=== PATIENT | female | born 1990 | race Caucasian/White ===

== ENCOUNTER 2017-07-28 23:32 | Emergency (ER) | payer OTHER ==
[2017-07-28 23:41] VITALS: BP 118/81; PULSE 78; TEMP 97.6; BMI 27.4
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
== END 2017-07-29 00:49 | disposition home or self-care (01) ==
LOC: JER 23:32
DX: S13.4XXA Sprain of ligaments of cervical spine, initial encounter (principal); V49.49XA Driver injured in collision with other motor vehicles in traffic accident, initial encounter; Y92.488 Other paved roadways as the place of occurrence of the external cause; Y93.89 Activity, other specified; Y99.8 Other external cause status
CPT/HCPCS: 84703; 99282-25

== ENCOUNTER 2017-12-29 18:01 | Emergency (ER) | payer SELFPAY ==
[2017-12-29 18:16] VITALS: BP 133/78; PULSE 105; TEMP 98.8; BMI 26.6
--- NOTE | 2017-12-29 18:16 | PDOC ---
Rapid Medical Evaluation Time Seen by Provider: 12/29/17 18:13 Medical Evaluation: Allergies Allergy/AdvReac Type Severity Reaction Status Date / Time No Known Allergies Allergy Verified 12/29/17 18:13 12/29/17 18:14 I have performed a brief in-person evaluation of this patient. The patient presents with a chief complaint of: creamy white, malodorous discharge x 2 days. Also c/o itching and ? dysuria. No abd pain, n/v/f/c. Had unprotected sex with new male 2 days ago per pt. H/o STDs. No pmhx Pertinent physical exam findings:pelvic deferred to ED provider I have ordered the following:upreg/ua/ucx/std, pt req HIV test The patient will proceed to the ED for further evaluation. 12/29/17 18:17 12/29/17 18:17 Discharge Disposition - Diagnosis Vaginal discharge - Referrals Referrals: Hao Nguyen [Primary Care Provider] - - Patient Instructions - Post Discharge Activity
[2017-12-29] MEDS ORDERED: AZITHROMYCIN 250 MG TABLET ONE (18:58)
[2017-12-29] MEDS ORDERED: AZITHROMYCIN 500 MG TABLET PO SCH (19:00)
--- NOTE | 2017-12-29 19:01 | PDOC ---
History of Present Illness - General Chief Complaint: Vaginal Sxs Stated Complaint: VAG SYMPTOMS Time Seen by Provider: 12/29/17 18:13 History Source: Patient Exam Limitations: No Limitations - History of Present Illness Travel History: No Initial Comments: 12/29/17 19:21 27 yr female with unprotected intercourse 2 days ago now has vaginal discomfort with white discharge. pt here for std testing. no pmhx. Past History - Past Medical History Allergies/Adverse Reactions: Allergies Allergy/AdvReac Type Severity Reaction Status Date / Time No Known Allergies Allergy Verified 12/29/17 18:13 Home Medications: Ambulatory Orders NK [No Known Home Medication] 12/29/17 Anemia: No Asthma: No Cancer: No Cardiac Disorders: No CVA: No COPD: No CHF: No Dementia: No Diabetes: No GI Disorders: No Disorders: No HTN: No Hypercholesterolemia: No Liver Disease: No Seizures: No Thyroid Disease: No Other medical history: DENIES. - Surgical History Abdominal Surgery: No Appendectomy: No Cardiac Surgery: No Cholecystectomy: No Lung Surgery: No Neurologic Surgery: No Orthopedic Surgery: No - Reproductive History (#): 3 Para: 0 Cervical CA: No Dysfunctional Uterine Bleeding: No Ectopic : Yes (x1) Endometrial CA: No Polycystic Ovaries: No Therapeutic (s) & number: Yes (ELECTIVE) Tubal Ligation: No Spontaneous : 1 - Immunization History Immunization Up to Date: Yes - Suicide/Smoking/Psychosocial Hx Smoking Status: No Smoking History: Never smoked Have you smoked in the past 12 months: No Number of Cigarettes Smoked Daily: 0 Hx Alcohol Use: No Drug/Substance Use Hx: No Substance Use Type: None Hx Substance Use Treatment: No *Physical Exam - Vital Signs Last Vital Signs Temp Pulse Resp BP Pulse Ox 98.8 F 105 H 19 133/78 99 12/29/17 18:13 12/29/17 18:13 12/29/17 18:13 12/29/17 18:13 12/29/17 18:13 - Physical Exam General Appearance: Yes: Nourished, Appropriately Dressed HEENT: positive: EOMI, SALMA Female Pelvic Exam: positive: normal external exam, discharge (white). negative : adnexal tenderness Gastrointestinal/Abdominal: positive: Normal Bowel Sounds, Soft Lymphatic: negative: Adenopathy Musculoskeletal: positive: Normal Inspection Neurologic: positive: Fully Oriented, Alert, Normal Mood/Affect, Normal Response , Motor Strength 5 Medical Decision Making - Medical Decision Making 12/29/17 19:28 cc: unprotected intercourse will check for std will treat as pt is having vaginal discharge no abd pain no urianry complaints, will check urine culture pt consented to HIV test dc inst discussed with patient all questions asked and answered *DC/Admit/Observation/Transfer Diagnosis at time of Disposition: Vaginal discharge - Discharge Dispostion Disposition: HOME Condition at time of disposition: Good - Referrals Referrals: Hao Nguyen [Primary Care Provider] - - Patient Instructions Additional Instructions: 12/29/17 1. As discussed, a screening test for the HIV virus was performed today. Your HIV test is Negative (normal). 2. As discussed, if you engaged in high risk-behavior in the three (3) months prior to this test, you could still potentially be at risk and you will need to be re-tested. 3. As discussed, avoid any high risk behavior (such as unprotected sex or needle-sharing) in the future to minimize the chances of anitra HIV. 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
[2017-12-29 19:06] LABS: URINE APPEARANCE CLEAR; URINE BILIRUBIN NEGATIVE (<2.0 mg/dL); URINE COLOR YELLOW; URINE GLUCOSE (UA) NEGATIVE (NEGATIVE); URINE KETONE 1+ (NEGATIVE); URINE NITRITE NEGATIVE (NEGATIVE); URINE PROTEIN NEGATIVE (NEGATIVE)
[2017-12-29 19:09] LABS: EPI CELLS RARE /HPF (FEW); URINE LEUK ESTERASE 3+ (NEGATIVE); URINE MUCUS RARE
[2017-12-29 19:13] LABS: HCG,QUALITATIVE URINE NEGATIVE
== END 2017-12-29 20:27 | disposition home or self-care (01) ==
LOC: JERFT 18:01
DX: N89.8 Other specified noninflammatory disorders of vagina (principal)
CPT/HCPCS: 36415; 81003; 81015; 84703; 87070; 87086; 87205; 87389; 87491; 87591; 99281-25

== ENCOUNTER 2022-02-07 13:42 | Emergency (ER) | payer OTHER ==
[2022-02-07 13:54] VITALS: RESP 17; TEMP 98.4; BMI 30.9
[2022-02-07] MEDS ORDERED: ASPIRIN 81 MG CHEWABLE TABLETS PO ONE (14:34)
[2022-02-07] MEDS ORDERED: ASPIRIN 81 MG CHEWABLE TABLETS ONE (15:09)
[2022-02-07 16:37] LABS: BASO % 0.6 % (0-2.0); EOS % 2.1 % (0-4.5); HEMATOCRIT 38.6 % (32.4-45.2); HEMOGLOBIN 13.1 GM/dL (10.7-15.3); LYMPH % 26.9 % (8-40); MCH 32.5 pg (25.7-33.7); MCHC 34.1 g/dl (32.0-36.0); MEAN CELL VOLUME 95.5 fl (80-96); MONO % 7.8 % (3.8-10.2); NEUT % 62.6 % (42.8-82.8); PLATELET COUNT 262 10^3/uL (134-434); RBC 4.04 M/mm3 (3.60-5.2); RDW 12.3 % (11.6-15.6); WHITE BLOOD COUNT 8.3 K/mm3 (4.0-10.0)
[2022-02-07 16:56] LABS: CALCIUM 9.1 mg/dL (8.5-10.1)
[2022-02-07 16:57] LABS: ALBUMIN 3.8 g/dl (3.4-5.0); BLOOD UREA NITROGEN 10.6 mg/dL (7-18); MAGNESIUM 2.2 mg/dL (1.8-2.4)
[2022-02-07 17:00] LABS: CREATININE 0.7 mg/dL (0.55-1.3)
[2022-02-07 17:02] LABS: BILIRUBIN,TOTAL 0.3 mg/dL (0.2-1); TOT PROT 7.4 g/dl (6.4-8.2)
[2022-02-07 17:54] VITALS: BP 101/65; PULSE 55
== END 2022-02-07 17:55 | disposition home or self-care (01) ==
LOC: JER 13:42
DX: M79.10 Myalgia, unspecified site (principal)
CPT/HCPCS: 36415; 71046-TC-FY; 80053; 83735; 84484; 85025; 93005; 93010; 99284-25

== ENCOUNTER 2022-06-01 11:05 | Emergency (ER) | payer OTHER ==
[2022-06-01 11:20] VITALS: BP 114/67; PULSE 64; RESP 18; TEMP 98.5; BMI 30.5
[2022-06-01] MEDS ORDERED: IBUPROFEN 600 MG TABLET (FP) PO ONE ×2 (13:28→13:29)
== END 2022-06-01 13:55 | disposition home or self-care (01) ==
LOC: JER 11:05 → JERFT 11:05 → JER 13:55
DX: M25.572 Pain in left ankle and joints of left foot (principal); V73.5XXA Driver of bus injured in collision with car, pick-up truck or van in traffic accident, initial encounter
CPT/HCPCS: 71046-TC-FY; 73610-TC-LT-FY; 99284-25

== ENCOUNTER 2022-10-04 07:03 | Emergency (ER) | payer OTHER ==
[2022-10-04 07:17] VITALS: BP 110/73; PULSE 76; RESP 16; TEMP 98.2; BMI 30.5
[2022-10-04 08:11] LABS: BASO % 0.5 % (0-2.0); EOS % 2.1 % (0-4.5); HEMATOCRIT 36.3 % (32.4-45.2); HEMOGLOBIN 12.7 GM/dL (10.7-15.3); LYMPH % 19.6 % (8-40); MCH 32.4 pg (25.7-33.7); MEAN CELL VOLUME 92.6 fl (80-96); MEAN PLT VOLUME 8.5 fl (7.5-11.1); MONO % 7.3 % (3.8-10.2); NEUT % 70.5 % (42.8-82.8); PLATELET COUNT 239 10^3/uL (134-434); RBC 3.92 M/mm3 (3.60-5.2); RDW 12.3 % (11.6-15.6); WHITE BLOOD COUNT 7.6 K/mm3 (4.0-10.0)
[2022-10-04] MEDS ORDERED: ACETAMINOPHEN 500 MG TABLET (FP) PO ONE (08:15)
[2022-10-04 08:19] LABS: EPI CELLS 33 /uL (0-25.1); HYALINE CASTS 1 /uL (0-3.1); URINE APPEARANCE CLEAR; URINE BACTERIA 327 /uL (0-1359); URINE BILIRUBIN NEGATIVE (NEGATIVE); URINE COLOR YELLOW; URINE GLUCOSE (UA) NEGATIVE (NEGATIVE); URINE KETONE NEGATIVE (NEGATIVE); URINE LEUK ESTERASE 1+ (NEGATIVE); URINE NITRITE NEGATIVE (NEGATIVE); URINE PROTEIN NEGATIVE (NEGATIVE); URINE RBC 4 /uL (0-23.9); URINE WBC 50 /uL (0-25.8)
[2022-10-04] MEDS ORDERED: ACETAMINOPHEN 500 MG TABLET (FP) ONE (08:48)
[2022-10-04 08:50] LABS: CHLORIDE 108 mmol/L (98-107); SODIUM 138 mmol/L (136-145)
[2022-10-04 08:53] LABS: ALBUMIN 3.7 g/dl (3.4-5.0); ANION GAP 5 MMOL/L (8-16); BLOOD UREA NITROGEN 11.5 mg/dL (7-18); CALCIUM 9.5 mg/dL (8.5-10.1); CO2 26 mmol/L (21-32); GLUCOSE,RANDOM 82 mg/dL (74-106)
[2022-10-04 08:54] LABS: LIPASE 90 U/L (73-393)
[2022-10-04 08:56] LABS: CREATININE 0.8 mg/dL (0.55-1.3); SGOT/AST 21 U/L (15-37); SGPT/ALT 26 U/L (13-61)
[2022-10-04 08:58] LABS: BILIRUBIN,TOTAL 0.4 mg/dL (0.2-1); TOT PROT 7.7 g/dl (6.4-8.2)
[2022-10-04 08:59] LABS: ALK PHOS 81 U/L (45-117)
== END 2022-10-04 12:14 | disposition home or self-care (01) ==
LOC: JER 07:03
DX: N30.00 Acute cystitis without hematuria (principal); R10.2 Pelvic and perineal pain; R10.32 Left lower quadrant pain
CPT/HCPCS: 36415; 76830-TC; 80053; 81003; 83690; 84702; 85025; 87086; 99284-25

== ENCOUNTER 2024-03-07 20:46 | Emergency (ER) | payer OTHER ==
[2024-03-07 21:01] VITALS: BP 100/68; PULSE 73; RESP 18; TEMP 97.6; BMI 31.2
[2024-03-07] MEDS ORDERED: ACETAMINOPHEN 325 MG TABLET (FP) ONE (21:54)
[2024-03-07] MEDS: ACETAMINOPHEN 500 MG TABLET (FP) PO ONE (22:05)
[2024-03-07 22:19] LABS: BASO % 0.7 % (0-2.0); EOS % 2.7 % (0-4.5); HEMATOCRIT 35.9 % (32.4-45.2); HEMOGLOBIN 12.1 GM/dL (10.7-15.3); MCH 31.6 pg (25.7-33.7); MCHC 33.8 g/dl (32.0-36.0); MEAN CELL VOLUME 93.5 fl (80-96); MEAN PLT VOLUME 7.3 fl (7.5-11.1); MONO % 7.1 % (3.8-10.2); NEUT % 59.5 % (42.8-82.8); PLATELET COUNT 266 10^3/uL (134-434); RBC 3.84 M/mm3 (3.60-5.2); RDW 12.7 % (11.6-15.6); WHITE BLOOD COUNT 8.7 K/mm3 (4.0-10.0)
[2024-03-07 22:37] LABS: POTASSIUM 3.8 mmol/L (3.5-5.1)
[2024-03-07 22:40] LABS: CALCIUM 8.9 mg/dL (8.5-10.1)
[2024-03-07 22:41] LABS: ALBUMIN 3.5 g/dl (3.4-5.0); BLOOD UREA NITROGEN 8.6 mg/dL (7-18)
[2024-03-07 22:44] LABS: CREATININE 0.7 mg/dL (0.55-1.3)
[2024-03-07 22:45] LABS: BILIRUBIN,TOTAL 0.4 mg/dL (0.2-1); TOT PROT 6.7 g/dl (6.4-8.2)
[2024-03-07] MEDS ORDERED: KETOROLAC TROMETHAMINE 15 MG/ML VIAL ONE (23:25)
[2024-03-07] MEDS: KETOROLAC TROMETHAMINE 15 MG/ML VIAL IVPUSH ONE (23:29)
== END 2024-03-08 00:14 | disposition home or self-care (01) ==
LOC: JER 20:46
PROC: 3E0333Z Introduction of Anti-inflammatory into Peripheral Vein, Percutaneous Approach (ICD-10-PCS; principal; 2024-03-07)
DX: R07.89 Other chest pain (principal); R20.0 Anesthesia of skin; R20.2 Paresthesia of skin; R06.02 Shortness of breath
CPT/HCPCS: 36415; 71046-TC-FY; 80053; 84484; 84703; 85025; 93005; 93010; 99285-25

== ENCOUNTER 2024-06-23 00:33 | Emergency (ER) | payer OTHER ==
[2024-06-23 00:57] VITALS: BP 106/67; PULSE 63; RESP 18; TEMP 98.4; BMI 30.9
== END 2024-06-23 02:33 | disposition home or self-care (01) ==
LOC: JER 00:33
DX: J10.1 Influenza due to other identified influenza virus with other respiratory manifestations (principal); R05.9 Cough, unspecified; R09.81 Nasal congestion; Z20.822 Contact with and (suspected) exposure to COVID-19
CPT/HCPCS: 0241U-QW; 87651; 99283-25